=== PATIENT | male | born 1930 | race Caucasian/White ===

== ENCOUNTER 2019-02-06 22:14 | Inpatient (IN) | payer MEDICARE ==
[2019-02-06] MEDS ORDERED: DOPamine 400 MG/D5W 250 ML 250 ML ONE (22:18)
[2019-02-06] MEDS ORDERED: Aspirin 325 MG TAB ONE (22:28)
[2019-02-06 22:38] LABS: #Basophils 0.1 thou/uL (0.0-0.2); #Eosinphils 0.2 thou/uL (0.0-0.7); #Lymphocytes 3.8 thou/uL (1.20-3.40); #Monocytes 1.3 thou/uL (0.11-0.59); #Neutrophils 4.9 thou/uL (1.40-6.50); %Basophils 0.8 % (0.0-1.0); %Eosinophils 1.6 % (0.0-10.0); %Lymphocytes 37.1 % (21.0-51.0); %Monocytes 12.8 % (0.0-10.0); %Neutrophils 47.7 % (42.0-75.0); Mean Corpuscular HGB CONC 32.1 g/dL (32.0-36.0); Mean Corpuscular Hemoglobin 31.2 pg (27.0-31.0); Mean Corpuscular Volume 97.4 fL (78.0-98.0); Mean Platelet Volume 9.9 fL (7.4-10.4); Platelet Count 146 thou/uL (130-400); RBC Distribution Width 14.4 % (11.5-14.5); Red Blood Cell (RBC) Count 3.21 mill/uL (4.70-6.10); White Blood Cell (WBC) Count 10.2 thou/uL (4.8-10.8)
--- NOTE | 2019-02-06 22:52 | RAD ---
XR Chest 1 View Portable History: Bradycardia Comparison: Radiograph 2009 Findings: Heart size is enlarged. Pulmonary arteries are dilated. Mild portal venous congestion, micah a, and small effusions. Surgical clips of the neck bilaterally. Impression: Cardiomegaly, small effusions, and mild pulmonary edema indicating congestive heart failu re.
[2019-02-06 23:00] LABS: ALT (SGPT) 20 U/L (8-55); AST (SGOT) 34 U/L (5-34); Albumin 3.9 g/dL (3.4-4.8); Alkaline Phosphatase 127 U/L (40-150); Anion Gap 19 mmol/L (10-20); BUN (Urea Nitrogen) 41 mg/dL (8.4-25.7); Bilirubin, Total 0.6 mg/dL (0.2-1.2); CK (CPK) 130 U/L (30-200); Calc. Creatinine Clearance 0 mL/min (70-130); Calcium 8.2 mg/dL (7.8-10.44); Carbon Dioxide 21 mmol/L (23-31); Chloride 105 mmol/L (98-107); Estimated GFR-MDRD 26; Globulin 2.8 g/dL (2.4-3.5); Glucose 236 mg/dL (83-110); Potassium 5.9 mmol/L (3.5-5.1); Protein, Total 6.7 g/dL (5.8-8.1); Sodium 139 mmol/L (136-145)
[2019-02-06 23:21] LABS: CKMB 1.9 ng/mL (0-6.6)
[2019-02-07] MEDS ORDERED: Aggrastat 12.5 MG/250 ML 250 ML IVPB SCH (00:15)
[2019-02-07] MEDS ORDERED: Sodium Chloride 0.9% 1,000 ML IV SCH (00:15)
[2019-02-07 00:39] VITALS: BMI 31.4
[2019-02-07 00:43] LABS: #Eosinphils 0.1 thou/uL (0.0-0.7); #Lymphocytes 2.2 thou/uL (1.20-3.40); #Monocytes 1.1 thou/uL (0.11-0.59); #Neutrophils 9.9 thou/uL (1.40-6.50); %Basophils 0.2 % (0.0-1.0); %Eosinophils 0.6 % (0.0-10.0); %Lymphocytes 16.5 % (21.0-51.0); %Monocytes 8.4 % (0.0-10.0); %Neutrophils 74.4 % (42.0-75.0); Mean Corpuscular HGB CONC 32.8 g/dL (32.0-36.0); Mean Corpuscular Hemoglobin 31.3 pg (27.0-31.0); Mean Corpuscular Volume 95.6 fL (78.0-98.0); Mean Platelet Volume 9.7 fL (7.4-10.4); Platelet Count 172 thou/uL (130-400); RBC Distribution Width 14.3 % (11.5-14.5); Red Blood Cell (RBC) Count 3.18 mill/uL (4.70-6.10); White Blood Cell (WBC) Count 13.3 thou/uL (4.8-10.8)
--- NOTE | 2019-02-07 00:58 | HP ---
CHIEF COMPLAINT: Chest pain, shortness of breath, bradycardia. HISTORY OF PRESENT ILLNESS: Mr. Lafleur is a very pleasant 88-year-old white gentleman who comes to the hospital for severe chest pain, shortness of breath, and bradycardia. He was at home, he was doing well up until 5 p.m. earlier this evening when he started noticing lightheadedness, shortness of breath, and chest pain. The chest pain would not get better, so he decided to call EMS, who came into his house and found him to be hypotensive in the 60s/40s and bradycardic. They gave him IV fluids and brought him in emergently. He was found to be in complete heart block with an escape rate of 33 beats per minute. He had ongoing chest pain. EKG showed ST depressions on the inferior leads and anterior leads suggestive of ischemia and he was hypotensive, even on dopamine, so he was taken emergently to the catheterization lab, where initially a temporary pacemaker was placed. He regained his color. His blood pressure increased immediately to the 130s/90s, but he continued to have chest pain, so we proceeded with a heart catheterization and it showed a chronically-occluded RCA and a severe mid LAD lesion about 99%, it seemed to be an acute lesion. It was decided to intervene on this, so a wire was placed and a drug-eluting stent was placed. There was a small residual thrombus posterior to it, which was right at the outflow of a small diagonal branch and I decided to leave this alone and just put him on an Aggrastat drip as if I would stent this, I would most likely occlude, flowed into that diagonal, and provoke another LA. Currently, he is chest pain free. He is doing much better. His heart rate is paced in the 100s and his blood pressure remains stable. PAST MEDICAL HISTORY: 1. Hypertension. 2. Hyperlipidemia. 3. Type 2 diabetes. 4. Coronary artery disease, status post several stents placed, likely on the LAD. SURGICAL HISTORY: 1. Bilateral cataract surgeries. 2. Right ear implant. 3. Hemorrhoid surgery. 4. Multiple stents placed as above. 5. Skin cancer removal. SOCIAL HISTORY: No alcohol, tobacco, or drugs. FAMILY HISTORY: Noncontributory. OUTPATIENT MEDICATIONS: Family will bring medications and these will be updated in the system. ALLERGIES: NO KNOWN DRUG ALLERGIES. REVIEW OF SYSTEMS: A 12-point review of systems was done and was all negative unless stated in the History of Present Illness. PHYSICAL EXAMINATION: VITAL SIGNS: Temperature 97.2, pulse 32 on admission, currently at 100 paced, respiratory rate 20, saturating 88% on Ventimask before the pacer. Now, he is at 93% on the Ventimask. Blood pressure is 122/65. GENERAL: Awake, alert, oriented x3, in no distress. HEENT: Normocephalic and atraumatic. NECK: Supple. LUNGS: Have coarse breath sounds bilateral. Mild crackles at the bases. CARDIOVASCULAR: S1 and S2. No S3 or S4. ABDOMEN: Soft. Positive bowel sounds. EXTREMITIES: 1+ edema. SKIN: Warm and dry. LABORATORY WORK: Reviewed. White count of 10, hemoglobin of 10, hematocrit of 31, and platelet count of a 146. Potassium was 5.9, creatinine was 2.38. Troponin was 0.13. All these values were coming in after the procedure has been done. GFR was 26, glucose of 236. IMAGING STUDIES: Chest x-ray was reviewed. Cardiomegaly with small effusions and mild pulmonary edema. ASSESSMENT AND PLAN: 1. Complete heart block. 2. Taz-CB-jxsroktyx myocardial infarction. 3. Cardiogenic shock secondary to acute myocardial infarction and complete heart block. 4. Type 2 diabetes. 5. Hypertension. PLAN: 1. Status post drug-eluting stent to the mid LAD with good results, pain-free. 2. Status post temporary pacemaker placement. 3. He has a small residual thrombus just proximal to the stent, which will be treated with Aggrastat for 12 hours. After this time is finished, we will plan on exchanging the temporary for a permanent pacemaker as he continues to be in complete heart block despite revascularization. 4. No DVT prophylaxis for now as he will be on Aggrastat. 5. PPI for stress ulcer prophylaxis. 6. Full code. 7. Disposition, pending clinical evolution. Job ID: [id number]
[2019-02-07 01:07] LABS: Troponin I 0.145 ng/mL (< 0.028)
[2019-02-07 01:08] LABS: CKMB 2.5 ng/mL (0-6.6)
[2019-02-07] MEDS ORDERED: Furosemide 40 MG/4 ML VIAL ONE (01:54)
[2019-02-07 02:00] LABS: Actual Bicarbonate (HCO3a) 21.1 mEq/L (22-28); Base Excess (BEa) -4.1 mEq/L (-2.0 to +3.0); CO2 Tension 38.8 mmHg (35.0-45.0); Carboxyhemoglobin (COHb) 1.1 gm% (0.0-3.0); Hemoglobin (Hb) 10.2 g/dL (14.0-18.0); Potassium - ABG Lab 5.07 mmol/L (3.70-5.30); pH, Arterial 7.35 (7.35-7.45)
[2019-02-07 02:03] LABS: O2 Tension (PaO2) 44.8 mmHg (> 60.0); Puncture Site ALINE
[2019-02-07 05:14] LABS: #Eosinphils 0.1 thou/uL (0.0-0.7); #Lymphocytes 1.9 thou/uL (1.20-3.40); #Monocytes 1.5 thou/uL (0.11-0.59); #Neutrophils 11.7 thou/uL (1.40-6.50); %Basophils 0.2 % (0.0-1.0); %Eosinophils 0.5 % (0.0-10.0); %Lymphocytes 12.7 % (21.0-51.0); %Monocytes 9.9 % (0.0-10.0); %Neutrophils 76.6 % (42.0-75.0); Hemoglobin 9.1 g/dL (14.0-18.0); Mean Corpuscular HGB CONC 32.3 g/dL (32.0-36.0); Mean Corpuscular Hemoglobin 30.3 pg (27.0-31.0); Mean Corpuscular Volume 93.7 fL (78.0-98.0); Mean Platelet Volume 9.9 fL (7.4-10.4); Platelet Count 181 thou/uL (130-400); RBC Distribution Width 14.2 % (11.5-14.5); Red Blood Cell (RBC) Count 2.99 mill/uL (4.70-6.10); White Blood Cell (WBC) Count 15.2 thou/uL (4.8-10.8)
[2019-02-07] MEDS: DOPamine 400 MG/D5W 250 ML 250 ML IVPB SCH ×4 (05:19→21:01)
[2019-02-07 05:33] LABS: Anion Gap 16 mmol/L (10-20); BUN (Urea Nitrogen) 44 mg/dL (8.4-25.7); Calc. Creatinine Clearance 27 mL/min (70-130); Calcium 8.3 mg/dL (7.8-10.44); Carbon Dioxide 23 mmol/L (23-31); Chloride 103 mmol/L (98-107); Estimated GFR-MDRD 23; Glucose 242 mg/dL (83-110); Potassium 5.4 mmol/L (3.5-5.1); Sodium 137 mmol/L (136-145)
[2019-02-07 05:38] LABS: CKMB 5.3 ng/mL (0-6.6)
[2019-02-07 05:41] LABS: Troponin I 0.352 ng/mL (< 0.028)
[2019-02-07] MEDS ORDERED: Clopidogrel Bisulfate 75 MG TAB PO SCH (09:00)
[2019-02-07] MEDS ORDERED: Furosemide 40 MG/4 ML VIAL SLOW IVP SCH ×2 (09:00→20:30)
[2019-02-07] MEDS ORDERED: Aspirin Chewable 81 MG TAB PO SCH (09:00)
[2019-02-07] MEDS ORDERED: Furosemide 100 MG/10 ML VIAL SLOW IVP SCH (11:45)
--- NOTE | 2019-02-07 11:59 | CON ---
DATE OF CONSULTATION: 02/07/2019 SERVICE: Pulmonary Medicine. REASON FOR CONSULTATION: Respiratory failure. HISTORY OF PRESENT ILLNESS: The patient is an 88-year-old white male with past medical history significant for coronary artery disease. He presented to the hospital with an abrupt onset of increasing shortness of breath and chest discomfort. He presented to the emergency department, was found to be profoundly hypotensive, and bradycardic. He was in complete heart block. A pacer was initiated. The patient continued to have chest discomfort, though his perfusion clearly improved. He was taken down to the freezer laboratory technician because of ongoing chest discomfort, and a significant disease was identified. As such, stent was placed. Following this, his oxygen requirements steadily increased. He has conversational dyspnea at this point. He is on BiPAP with 100% FiO2. He denies any current fevers, chills, or other precipitating events that presented prior to 5:00 p.m. yesterday afternoon. PAST MEDICAL HISTORY: 1. Coronary artery disease. 2. Chronic systolic heart failure. 3. Type 2 diabetes mellitus. 4. Complete heart block. 5. Dyslipidemia. 6. Hypertension. 7. Hypospadia. PAST SURGICAL HISTORY: Percutaneous coronary intervention with stent placement times greater than 5. FAMILY HISTORY: Noncontributory. SOCIAL HISTORY: Negative for current alcohol, tobacco, or illicit drug use. REVIEW OF SYSTEMS: Because of conversational dyspnea and BiPAP placement, this is challenging to obtain. ALLERGIES: NO KNOWN DRUG ALLERGIES. MEDICATIONS: List of the patient's inpatient medications were reviewed. No specific updates were made at this time. PHYSICAL EXAMINATION: VITAL SIGNS: Afebrile. Pulse 80, blood pressure 101/45, respirations 29, saturation 85% on a PEEP of 11, a FiO2 of 100%. HEENT: Normocephalic and atraumatic. Sclerae white. Conjunctivae pink. Oral mucosa is moist without lesions. LUNGS: Decent air entry. Extensive crackling is present throughout bilateral lung purvis. No prolonged expiratory phase or wheezing is appreciated. HEART: Normal rate, regular. ABDOMEN: Soft, nontender, and nondistended. Bowel sounds are positive. MUSCULOSKELETAL: No cyanosis or clubbing. There is trace 1+ pitting in the bilateral lower extremities. NEUROLOGIC: Grossly nonfocal. LABORATORY DATA: WBC 15.2 and up trending, hemoglobin 9.1, platelets 181,000. PH 7.35, pCO2 of 38, PO2 of 45, corresponding to saturation of 74% while he was on high-flow nasal cannula. Troponin is gently up trending to 0.352, CK-MB remains low. Creatinine 2.62 and steadily up trending. We do not have baseline values on him. Potassium 5.4, has improved. IMAGING STUDIES: Echocardiogram demonstrates a normal ejection fraction. The left atrium is dilated. Moderate mitral regurgitation is noted. There is moderate aortic valve stenosis as well. Chest x-ray demonstrates increasing by apical fluffiness, interstitial fullness, widened carinal angle, possible blunting of the bilateral costophrenic angles. ASSESSMENT: 1. Acute hypoxic respiratory failure. 2. Third-degree heart block, status post successful pacemaker placement. 3. Coronary artery disease, status post percutaneous coronary intervention. 4. Acute volume overload with severe flash pulmonary edema. DISCUSSION AND PLAN: The patient is doing quite poorly from a respiratory standpoint. Saturations are low on maximal support with noninvasive ventilation. Brennan catheter is currently being placed. Once this is in, if the patient does not have dramatic improvement in oxygenation status, we will move forward with elective intubation. We are making efforts at diuresing the patient. Pulmonary/Critical Care will continue to follow along very closely. I have titrated the BiPAP at bedside. CRITICAL CARE TIME: 30 minutes. Job ID: [id number] MTDD
--- NOTE | 2019-02-07 13:10 | RAD ---
RADIOGRAPH CHEST 1 VIEW: Date: 02/07/2019 Time: 10:53 a.m. HISTORY: An 88-year-old male with respiratory distress. COMPARISON: 02/06/2019 FINDINGS: The pulmonary interstitial densities have become significantly worse diffusely bilaterally. Cardiome julia is again noted. IMPRESSION: Interval worsening of pulmonary interstitial edema is evidence for interval worsening of congestive h eart failure. XIAO [] POS: CET
[2019-02-07 13:48] LABS: #Basophils 0.1 thou/uL (0.0-0.2); #Lymphocytes 2.1 thou/uL (1.20-3.40); #Monocytes 2.1 thou/uL (0.11-0.59); #Neutrophils 14.7 thou/uL (1.40-6.50); %Basophils 0.3 % (0.0-1.0); %Eosinophils 0.1 % (0.0-10.0); %Lymphocytes 10.9 % (21.0-51.0); %Monocytes 11.3 % (0.0-10.0); %Neutrophils 77.4 % (42.0-75.0); Hemoglobin 8.6 g/dL (14.0-18.0); Mean Corpuscular HGB CONC 32.5 g/dL (32.0-36.0); Mean Corpuscular Hemoglobin 30.3 pg (27.0-31.0); Mean Corpuscular Volume 93.3 fL (78.0-98.0); Mean Platelet Volume 9.6 fL (7.4-10.4); Platelet Count 176 thou/uL (130-400); RBC Distribution Width 14.5 % (11.5-14.5); Red Blood Cell (RBC) Count 2.85 mill/uL (4.70-6.10)
[2019-02-07] MEDS ORDERED: Midazolam HCl 2 mg/2 ml Vial ONE ×3 (14:36→15:52)
[2019-02-07] MEDS ORDERED: Lidocaine 1% (PF) 30 ML VIAL ONE (14:44)
[2019-02-07] MEDS ORDERED: Propofol 1,000 MG/100 ML VIAL IV ONE (16:07)
[2019-02-07 16:24] LABS: Actual Bicarbonate (HCO3a) 20.5 mEq/L (22-28); Base Excess (BEa) -5.1 mEq/L (-2.0 to +3.0); CO2 Tension 39.9 mmHg (35.0-45.0); Calcium, Ionized 1.03 mmol/L (1.12-1.30); Carboxyhemoglobin (COHb) 1.1 gm% (0.0-3.0); Hemoglobin (Hb) 8.7 g/dL (14.0-18.0); Potassium - ABG Lab 6.07 mmol/L (3.70-5.30); pH, Arterial 7.33 (7.35-7.45)
--- NOTE | 2019-02-07 16:26 | PDOC.CTH ---
Cardiology Progress Note - Subjective His respiratory status decompensated overnight. We had to escalate his oxygen supplementation and was started on IV lasix. Downey catheter was not able to be placed overnight due to hypospadia and was not able to urinate and had a distended bladder this morning and eventually decompressed by placement of downey y urologist. He eventually was escalated to BiPAP and had been tolerating this until earlier today he became confused and pulled his right femoral temporary venous pacer out and went into severe bradycardia and hypotension. He had to be emergently intubated and taken down to the lab emergently to replace temporary pacer. Since downey placed and high dose lasix given he has diuresed better/ - Objective Vital Signs Temp Pulse Pulse Ox 02/07/19 12:00 98 F 02/07/19 10:42 80 02/07/19 08:00 97.6 F 86 L 02/07/19 07:33 80 02/07/19 07:31 87 L Weight 207 lb 02/06/19 02/07/19 02/08/19 06:59 06:59 06:59 Intake Total 681 Output Total 660 Balance 681 -660 - Physical Examination General/Neuro: other: (Sedated intubated ) Neck: no JVD present Lungs: other: (coarse breath sounds. ) Heart: other: (paced.) Abdomen: other: (distention improved after bladder decompressed. ) Extremities: + edema B (1+) - Telemetry Telemetry Rhythm: Paced. CHB underlying - Labs Result Diagrams: 02/07/19 13:43 02/07/19 04:50 Troponin/CKMB CK-MB (CK-2) 5.3 ng/mL (0-6.6) 02/07/19 04:50 Troponin I 0.352 ng/mL (< 0.028) H* 02/07/19 04:50 - Assessment/Plan 1. Complete heart block 2. Cardiogenic shock 3. NSTEMI s/p PCI to LAD, ALKA 4. Acute hypoxic respiratory insufficiency 5. Severe pulmonary edema. 6. DENIS on CKD 7. Anemia 8. Possible aspiration pneumonia 9. Hypospadia, complex downey placement by urology. PLAN: - Continue supportive care. - Will start Abx. He vomited on the cath table last night after revascularization and he may have aspirated. - Appreciate pulmonary Critical care input. - Continue Plavix and aspirin. - He is severely ill and would not be unexpected. - Family has been updated. states he would agree to temporary intubation but if this is more manager long term care he would not agree to this. Currently he remains full code but family aware his situation is deteriorating rapidly. - 120 minutes of critical care throughout the day including a code blue called briefly when patient pulled catheter.
[2019-02-07 16:28] LABS: O2 Tension (PaO2) 51.3 mmHg (> 60.0)
[2019-02-07 16:29] LABS: Puncture Site RBA
[2019-02-07 16:31] LABS: ALV-art Gradient 611.825 (0-20)
[2019-02-07] MEDS ORDERED: Propofol 1,000 MG/100 ML VIAL IV PRN (17:39)
[2019-02-07] MEDS ORDERED: Lorazepam 2 MG/ML VIAL SLOW IVP PRN ×2 (17:39→22:47)
[2019-02-07] MEDS ORDERED: Morphine 2 MG/ML SYRINGE SLOW IVP PRN ×2 (17:39→22:46)
[2019-02-07] MEDS ORDERED: fentaNYL Citrate/PF 2,000 MCG in Sodium Chloride 0.9% 60 ML IV SCH (17:39)
[2019-02-07] MEDS ORDERED: Propofol BOLUS 1,000 MG/100 ML VIAL IV PRN (17:39)
[2019-02-07] MEDS ORDERED: DISCONTINUE PREVIOUS NARCOTIC PAIN MEDICATIONS AND BENZODIAZEPINES FS SCH (17:39)
[2019-02-07] MEDS ORDERED: Fentanyl BOLUS 250 ML IVPB PRN (17:39)
[2019-02-07] MEDS ORDERED: Ventilator Sedation Protocol 1 EACH FS SCH (17:45)
[2019-02-07] MEDS ORDERED: methylPREDNISolone Sod Succ 40 MG VIAL IVP SCH (17:45)
--- NOTE | 2019-02-07 17:59 | OP ---
DATE OF PROCEDURE: 02/07/2019 SERVICE: Pulmonary Medicine. PROCEDURE PERFORMED: Emergent endotracheal intubation. CONSENT: Procedure was performed emergently secondary to clinical deterioration and respiratory failure. MEDICATIONS: 1. Versed 2 mg IV push. 2. Etomidate 30 mg IV push. PREOPERATIVE DIAGNOSIS: Acute hypoxic respiratory failure. POSTOPERATIVE DIAGNOSIS: Acute hypoxic respiratory failure. DESCRIPTION OF PROCEDURE: Vital sign monitoring was accomplished by noninvasive hemodynamic monitoring, pulse oximetry, and telemetry. In the supine position, the patient was preoxygenated with BiPAP. We can only maintain saturations of 88%. Following induction of anesthesia, a GlideScope was inserted in the mouth offering clear identification of the posterior oropharynx and laryngeal structures with a grade 1 view. An endotracheal tube was visualized passing through the vocal cords. Placement was confirmed by condensation in endotracheal tube, colorimetric capnography, and bi-axillary chest auscultation. The endotracheal tube was secured at 23 cm, measured at the teeth. The patient was placed on mechanical ventilation with good return of volumes. He was brought down to the pipelines laborer to proceed with emergent replacement of the pacer. ESTIMATED BLOOD LOSS: None from the procedure, though frothy pulmonary edema which was quite serosanguineous came from the trachea on placement of the tube. COMPLICATIONS: Intermittent desaturation, which improved over 10 minutes. Job ID: [id number]
[2019-02-07] MEDS ORDERED: Piperacillin/Tazobactam 2.25 GM in Sodium Chloride 0.9% 100 ML IVPB SCH (18:00)
[2019-02-07] MEDS ORDERED: Norepinephrine 8 MG/250 ML BAG IVPB PRN (18:22)
--- NOTE | 2019-02-07 18:56 | CON ---
DATE OF CONSULTATION: 02/07/2019 HISTORY OF PRESENT ILLNESS: I am seeing Mr. Lafleur at our [facility] ICU as Electrophysiology service delivery consultant. His problems are, 1. New-onset of complete AV block in the setting of acute myocardial infarction. 2. History of coronary artery disease. a. Prior history of stent placements. b. Left heart catheterization from 02/06/2019, demonstrates chronic RCA occlusion, LAD stenosis, requiring stenting with a drug-eluting stent. 3. History of structurally normal heart, LVEF 55% to 60%, moderate mitral regurgitation, mild left atrial enlargement on echo on 02/07/2019. ALLERGIES: NONE NOTED. HOME MEDICATIONS: Included, 1. Furosemide. 2. Aspirin. 3. Clopidogrel. 4. Midazolam. 5. Lipitor. SUBJECTIVE: Mr. Lafleur was admitted after passing out. He was found to be hypotensive and bradycardic after an abrupt onset of dyspnea, chest pains. He was noted to be in complete AV block. Dr. Pop placed a temporary pacemaker, which has improved his chest circulation, but remained to have chest pains, eventually underwent a left heart catheterization with stenting as noted above. Continues to be bradycardic, requiring a temporary pacing. This afternoon, with agitation, he pulled out his temporary pacemaker. A floating pacer was inserted. His respirations have gradually worsened. Eventually, he was requiring intubation after frothy red sputum was noted. Oxygenation still remained in the below 90. Rest of 12-point review of system is otherwise unremarkable/unavailable. PAST MEDICAL HISTORY: As above. SOCIAL HISTORY: The patient denies smoking, EtOH, or drug abuse. FAMILY HISTORY: Noncontributory. PHYSICAL EXAMINATION: VITAL SIGNS: Blood pressure is 115/48, heart rate 80, respirations 28. The patient is afebrile. GENERAL: Intubated and sedated man with poor response. NECK: Supple. Jugular veins difficult to visualize. CHEST: Coarse with bilateral crackles. HEART: Heart sounds are regular. No murmur or gallop. ABDOMEN: Benign. Bowel sounds positive. EXTREMITIES: Lower extremities without edema, clubbing, or cyanosis. Pulses are adequate. NEUROLOGIC: The patient is nonfocal. MUSCULOSKELETAL: Without joint swelling or deformities. SKIN: Without rash. DIAGNOSTIC DATA: EKG is reviewed revealing a complete AV block and junctional escape rhythm intermittent pacing capture failure. ASSESSMENT AND PLAN: Mr. Lafleur is an 88-year-old man who has complete atrioventricular block following an anterior myocardial infarction, which persists despite of the recent stent procedure. He is still a pacemaker dependent. This afternoon, he pulled out his pacer and will likely need a repositioning of pacemaker, Dr. Pop is already planning. He also has a florid respiratory failure, possibly related to pulmonary edema, alternative via an infectious pulmonary process cannot be ruled out. PLAN: At this point, agree with the need for temporary pacer. Medical stabilization. He will likely need a permanent pacing if no improvement is seen in next day or 2. We will follow with you. Thank you for letting me to participate in the care of this patient. Job ID: [id number] MTDD
--- NOTE | 2019-02-07 18:57 | RAD ---
PORTABLE CHEST: 02/07/2019 PROVIDED CLINICAL HISTORY: Central line placement. COMPARISON: Study performed earlier on the same date. FINDINGS: Interval placement of endotracheal tube, the tip of which projects just below the level of the thorac ic inlet. Interval placement of left IJ central catheter, the tip of which projects over the expecte d location of the SVC. No evidence for pneumothorax. Extensive bilateral interstitial and alveolar opacities persist. IMPRESSION: 1. Status post intubation and central line placement. 2. Extensive bilateral interstitial and air space disease. POS: COLT
[2019-02-07] MEDS ORDERED: Albuterol Sulfate 2.5 mg/3 ml Neb NEB SCH (19:00)
--- NOTE | 2019-02-07 19:30 | OP ---
DATE OF PROCEDURE: 02/07/2019 SERVICE: Pulmonary Medicine. PROCEDURE PERFORMED: Left-sided triple-lumen central catheter placement under ultrasound guidance. CONSENT: The risks and benefits of the procedure were discussed with the medical decision maker. All questions were answered and alternative options were Discussed. MEDICATIONS: None. PREOPERATIVE DIAGNOSIS: Cardiogenic shock. POSTOPERATIVE DIAGNOSIS: Cardiogenic shock. DESCRIPTION OF PROCEDURE: Vital sign monitoring was accomplished by noninvasive hemodynamic monitoring, pulse oximetry, and telemetry. A time-out was performed identifying the correct patient by name and date of . Procedure site was marked. The patient was placed in supine position, and the left neck was prepped and draped in sterile fashion. The course of the internal jugular vein was mapped with an ultrasound and the overlying skin was cannulated with a needle under direct ultrasound observation on the first attempt. There was return of nonpulsatile dark red blood. A J-shaped guidewire was threaded through the cannulation needle without difficulty. A small incision was made. The dilator and triple-lumen central venous catheter were severely threaded over the guidewire. The catheter was sutured to the skin at 17 cm with 3-0 silk sutures x4. All ports withdrew and flushed without difficulty. A sterile dressing was applied, and the procedure was terminated. A postprocedure x-ray demonstrated adequate location for the tip of the catheter. ESTIMATED BLOOD LOSS: 5 mL. COMPLICATIONS: None. Job ID: [id number] MTDD
[2019-02-07 20:38] VITALS: TEMP 98.5
[2019-02-07 20:56] LABS: Bilirubin Negative (Negative); Blood, Urine 2+ (Negative); Clarity Clear (Clear); Glucose, Urine (Dipstick) Normal (Negative); Leukocyte Negative Leu/uL (Negative); Mucous/LPF Rare LPF (<2+); Nitrite Negative (Negative); Protein, Urine (Dipstick) Negative (Neg-Trace); RBC/HPF 21-50 HPF (0-3); Squamous Epithelial 0-3 HPF (0-3); Urobilinogen Normal mg/dL (Less than 2); WBC/HPF 0-3 HPF (0-3)
[2019-02-07] MEDS ORDERED: Furosemide 100 MG, Admixture Fee 1 EACH in Sodium Chloride 0.9% 100 ML IVPB SCH (21:00)
[2019-02-07] MEDS ORDERED: Atorvastatin Calcium 40 MG TAB PO SCH (21:00)
[2019-02-07 21:14] LABS: Bacteria/HPF Rare-Few HPF (None Seen)
[2019-02-07 21:15] LABS: Urine Culture Reflex No No
[2019-02-07 22:09] VITALS: BP 120/50
--- NOTE | 2019-02-08 02:26 | CON ---
DATE OF CONSULTATION: 02/07/2019 REASON FOR CONSULTATION: Unable to place Brennan catheter. CHIEF COMPLAINT: Chest pain and shortness of breath. HISTORY OF PRESENT ILLNESS: Mr. Lafleur is an 88-year-old gentleman who presented to the emergency room with shortness of breath and chest pain. He was taken emergently to the catheter lab where he underwent a temporary pacemaker placement. He then underwent heart catheterization. Despite all of this, throughout this entire hospitalization over the last 24 hours, the patient has not voided. He has demonstrated some renal insufficiency and fluid overload, but very little urine output has been obtained. Attempts were made by the nurses to place a Brennan catheter, they were unsuccessful. The patient has known hypospadias and they were unable to place the catheter because of the small meatus. PAST MEDICAL HISTORY: Hypertension, hyperlipidemia, coronary artery disease. PAST SURGICAL HISTORY: Cataract surgery, hemorrhoid surgery, coronary stent placement, skin cancer excisions. SOCIAL HISTORY: Nonsmoker. No alcohol use. FAMILY HISTORY: Noncontributory. MEDICATIONS: Please seemed list in hospital record. ALLERGIES: NO KNOWN DRUG ALLERGIES. REVIEW OF SYSTEMS: The patient is unable to provide adequate review of systems at this time. He is short of breath in the ICU. PHYSICAL EXAMINATION: GENERAL: He is awake and alert, although breathing rather rapidly on a rebreathing mask. HEENT: Normocephalic, atraumatic. NECK: Supple without masses. CHEST: Coarse breath sounds bilaterally. CARDIOVASCULAR: No murmurs auscultated. ABDOMEN: Soft, nontender. : The patient has hypospadias. The patient was sterilely prepped. The meatus was noted and a 16 Yoruba Brennan catheter was able to be placed without need of any dilation of the meatus. IMPRESSION: 1. Complete heart block, being managed. 2. Poor urine output secondary to acute tubular necrosis. 3. Brennan catheter in place for closely monitoring urine output. RECOMMENDATIONS: May remove Brennan catheter when the patient ambulating. Job ID: [id number] [facility]
[2019-02-08] MEDS ORDERED: Furosemide 100 MG/10 ML VIAL SLOW IVP SCH (06:00)
[2019-02-08] MEDS ORDERED: Furosemide 80 MG TAB PO SCH (09:00)
--- NOTE | 2019-02-08 10:08 | CCL ---
DATE: 02/07/19 PROCEDURE: Temporary pacemaker placement. The patient had a temporary pacemaker placed yesterday. He pulled it out earlier today. He went neri cardic again and complete heart block, so he was brought down to the Catheterization Lab to be reposi tioned. At this point in time, he is now intubated. We successfully were able to pull the old one out and push the new one in without issues. RECOMMENDATION: Continued supportive care.
--- NOTE | 2019-02-08 11:02 | DIS ---
DATE OF ADMISSION: 02/06/2019 DATE OF DISCHARGE: 02/07/2019 SUMMARY: Mr. Lafleur came in on the for severe bradycardia and hypotension, very symptomatic with chest pain. He had a heart rate in the 30s with complete heart block. He was taken emergently to the catheterization lab, where he had a temporary pacemaker placed. He also underwent heart catheterization as he continued to have chest pains. He was found to have a severe LAD lesion. This was wired and stented successfully with a drug-eluting stent. He did well initially. He was having no more chest pain. He did have a small amount of thrombus left on his LAD. He was taken up to the ICU, where he slowly went into respiratory distress. Attempts were done at diuresing. We were unable to get a Brennan catheter in as he had phimosis, so finally we were able to get one in with help of Urology and he started diuresing. However, the family decided that he did not wish to be intubated or sedated and he had reached the point where he needed to be intubated to protect his airway. Family decided to withdraw care and eventually the patient a few hours later. No autopsy per family's wishes. Job ID: [id number]
--- NOTE | 2019-02-08 22:55 | EKG ---
Test Reason : POST-CATH Blood Pressure : / mmHG Vent. Rate : 080 BPM Atrial Rate : 105 BPM P-R Int : 000 ms QRS Dur : 184 ms QT Int : 470 ms P-R-T Axes : 000 -44 095 degrees QTc Int : 542 ms Ventricular-paced rhythm Abnormal ECG When compared with ECG of 13-DEC-2008 16:51, Electronic ventricular pacemaker has replaced Sinus rhythm Vent. rate has increased BY 28 BPM Confirmed by Latricia STEVEN ([id number]) on 02/08/2019 10:54:41 PM Referred By: BLADE Confirmed By:Latricia STEVEN
--- NOTE | 2019-02-12 12:46 | EKG ---
Test Reason : Blood Pressure : / mmHG Vent. Rate : 032 BPM Atrial Rate : 084 BPM P-R Int : 000 ms QRS Dur : 128 ms QT Int : 650 ms P-R-T Axes : 048 058 247 degrees QTc Int : 474 ms Sinus rhythm with complete heart block and Idioventricular rhythm Left bundle branch block Abnormal ECG Confirmed by DANILO MENESES, ESTEFANÍA ([id number]), medical transcription editor DENISE GONZALEZ ([id number]) on 02/12/2019 12:46:06 PM Referred By: Confirmed By:ESTEFANÍA CARRASCO MD
--- NOTE | 2019-03-02 22:44 | PQF ---
[employer] Julio BURKE MURGUIA [id number] CLINICAL DOCUMENTATION CLARIFICATION FORM: POST DISCHARGE Addendum to original discharge summary date: ____ Late entry note date: __ DATE: 03/03/2019 ATTN:BURKE MURGUIA Please exercise your independent, professional judgment in responding to the clarification form. Clinical indicators are provided on the bottom of this form for your review Please check appropriate box(s): [ ] CKD please specify Stage of CKD___4 [ ] Other diagnosis [ ] Unable to determine In addition, please specify: Present on Admission (POA): [ ] Yes [ ] No [ ] Unable to determine National Kidney Foundation Guidelines for CKD Staging Stage I Kidney damage with normal or increased GFRGFR > 90 Stage IIKidney damage with mildly decreased GFRGFR 60-89 Stage III Kidney damage with moderately decreased GFRGFR 30-59 Stage IVKidney damage with severely decreased GFRGFR 16-29 Stage VKidney failureGFR<15 ESRDEnd Stage Renal DiseaseOn dialysis For continuity of documentation, please document condition throughout progress notes and discharge summary. Thank You. CLINICAL INDICATORS - SIGNS / SYMPTOMS / LABS Elevated creatinine 26.2 - Documented in Laboratory Hypotensive 60s/40s - Documented in H&P on 02/06 by BURKE MURGUIA creatinine 2.62 and steadily up trending - Documented in Consultation note on by Debi Dueñas we were unable to get downey catheter in as he had phimosis - Documented in DS on 02/07 by BURKE MURGUIA Poor urine output 2/2 ATN - documented in consultation note on 02/07 by rene stallings MD DENIS on CKD - Documented in cardiology PNs on by BURKE MURGUIA RISK FACTORS NSTEMI - Documented in H&P on 02/06 by BURKE MURGUIA cadiogenic shock - Documented in H&P on 02/06 by BURKE MURGUIA DM - Documented in H&P on 02/06 by BURKE MURGUIA TREATMENTS: Sodium chloride 0.9% normal saline 0.9% 1000 ml IV - Documented in Medication snapshot (This form is maintained as a part of the permanent medical record) 2014 [employer] All Rights Reserved [email or web address] [not [email or web address]] [email or web address]
== END 2019-02-07 23:10 | disposition expired | DRG 246 ==
LOC: ERS 22:14 → SDC/OP 23:15 → CCU 23:54
PROVIDERS: ADMIT Internal Medicine Cardiovascular Disease; ATTEND Internal Medicine Cardiovascular Disease
PROC: 027034Z Dilation of Coronary Artery, One Artery with Drug-eluting Intraluminal Device, Percutaneous Approach (ICD-10-PCS; principal; 2019-02-07)
PROC: 5A1213Z Performance of Cardiac Pacing, Intermittent (ICD-10-PCS; 2019-02-07)
PROC: B2111ZZ Fluoroscopy of Multiple Coronary Arteries using Low Osmolar Contrast (ICD-10-PCS; 2019-02-07)
PROC: B2151ZZ Fluoroscopy of Left Heart using Low Osmolar Contrast (ICD-10-PCS; 2019-02-07)
PROC: 5A09357 Assistance with Respiratory Ventilation, Less than 24 Consecutive Hours, Continuous Positive Airway Pressure (ICD-10-PCS; 2019-02-07)
PROC: 3E04317 Introduction of Other Thrombolytic into Central Vein, Percutaneous Approach (ICD-10-PCS; 2019-02-07)
PROC: 02HV33Z Insertion of Infusion Device into Superior Vena Cava, Percutaneous Approach (ICD-10-PCS; 2019-02-07)
PROC: B548ZZA Ultrasonography of Superior Vena Cava, Guidance (ICD-10-PCS; 2019-02-07)
PROC: 0BH18EZ Insertion of Endotracheal Airway into Trachea, Via Natural or Artificial Opening Endoscopic (ICD-10-PCS; 2019-02-07)
PROC: 5A1935Z Respiratory Ventilation, Less than 24 Consecutive Hours (ICD-10-PCS; 2019-02-07)
DX: I21.4 Non-ST elevation (NSTEMI) myocardial infarction (principal); J96.01 Acute respiratory failure with hypoxia; N17.0 Acute kidney failure with tubular necrosis; I44.2 Atrioventricular block, complete; J81.1 Chronic pulmonary edema; I13.0 Hypertensive heart and chronic kidney disease with heart failure and stage 1 through stage 4 chronic kidney disease, or unspecified chronic kidney disease; I50.22 Chronic systolic (congestive) heart failure; N18.4 Chronic kidney disease, stage 4 (severe); E78.5 Hyperlipidemia, unspecified; I25.10 Atherosclerotic heart disease of native coronary artery without angina pectoris; R57.0 Cardiogenic shock; I34.0 Nonrheumatic mitral (valve) insufficiency; Z85.828 Personal history of other malignant neoplasm of skin; Z98.42 Cataract extraction status, left eye; Z98.41 Cataract extraction status, right eye; Z79.82 Long term (current) use of aspirin; E11.22 Type 2 diabetes mellitus with diabetic chronic kidney disease; Z79.899 Other long term (current) drug therapy; Q54.9 Hypospadias, unspecified; N47.1 Phimosis
CPT/HCPCS: 33210; 36415; 36416; 71045; 80048; 80053; 81001; 82550; 82553; 82805; 84484; 85025; 85347; 87040; 93005; 93010; 93306; 94002; 94640; 94660; 96365; 99152; C1769; C1874; J1265; J1644; J1940; J2001; J2060; J2250; J2270; J2543; J2704; J2920; J3490; J7611